=== PATIENT | female | born 1995 | race Caucasian/White ===

== ENCOUNTER 2016-08-05 15:44 | Inpatient (IN) | payer MEDICAID ==
[2016-08-05] VITALS (12 sets, daily range): BP systolic 108–150; BP diastolic 59–94; PULSE 63–104; TEMP 98.2–98.4
[~2016-08-05] VITALS: Ht 170.2 cm; Wt 72.7 kg
[~2016-08-05 15:44] MED LIST: AMOXICILLIN 8751 TAB PO; CEFTIN500 MG PO; NAPROSYN500 MG PO; NO HOME MEDICATIONS; NORCO 325 MG-51 TAB PO; PHENERGAN W/CO120 M1 PO; PREDNISONE20 MG PO
[2016-08-05] MEDS ORDERED: PRENATAL (16:11)
[2016-08-05 18:09] LABS: AMPHETAMINE URINE NEGATIVE; BARBITURATES URINE NEGATIVE; BENZODIAZEPINES URINE NEGATIVE; BUPRENORPHINE URINE NEGATIVE; METHADONE URINE NEGATIVE; OPIATES URINE NEGATIVE; OXYCODONE URINE NEGATIVE; PHENCYCLIDINE URINE NEGATIVE; PROPOXYPHENE URINE NEGATIVE; THC CANNABINOIDS URINE POSITIVE
[2016-08-05 18:42] LABS: BASO % 0.1 % (0.0-2.0); EOS % 0.2 % (0-4.0); GRAN % 75.6 % (42.2-75.2); HEMATOCRIT 42.4 % (37.0-47.0); HEMOGLOBIN 14.8 g/dl (12.5-16.0); LYMPH # 2.3 (1.2-3.4); LYMPH % 16.1 % (20.0-51.0); MEAN CELL VOLUME 87 fl (80.0-100.0); MEAN CORPUSCULAR HEMOGLOBIN 30 pg (27.0-31.0); MEAN CORPUSCULAR HGB CONC 35 g/dl (33.0-37.0); MEAN PLATELET VOLUME 11.4 fl (7.4-10.4); MONO # 1.1 (0.1-0.6); MONO % 7.4 % (1.7-9.3); PLATELET COUNT 245 K/mm3 (130-400); RED BLOOD COUNT 4.87 M/mm3 (4.10-5.30); REDCELL DISTRIBUTION WIDTH-CV 14.2 % (11.5-14.5); WHITE BLOOD COUNT 14.5 K/mm3 (4.8-10.8)
[2016-08-06 02:10] VITALS: BP 128/88; PULSE 88; TEMP 98.1
[2016-08-06 07:11] VITALS: BP 104/64; PULSE 67
[2016-08-06 17:41] VITALS: BP 117/85; PULSE 81
[2016-08-07] MEDS ORDERED: PERCOCET 325 MG1 TA2 PO (08:28)
[2016-08-07] MEDS ORDERED: IBU800 M1 PO (08:28)
[2016-08-07 08:59] VITALS: BP 109/67; PULSE 68; TEMP 98
== END 2016-08-07 16:30 | disposition home or self-care (01) | DRG 775 ==
LOC: LDRO 15:44 → LDR 16:24 → OB 18:04 → LDRO 18:04 → LDR 18:04 → OB 21:00
PROVIDERS: Obstetrics & Gynecology
PROC: 10E0XZZ Delivery of Products of Conception, External Approach (ICD-10-PCS; principal; 2016-08-05)
DX: O77.0 Labor and delivery complicated by meconium in amniotic fluid (principal); O99.323 Drug use complicating pregnancy, third trimester; F12.90 Cannabis use, unspecified, uncomplicated; O99.334 Smoking (tobacco) complicating childbirth; F17.210 Nicotine dependence, cigarettes, uncomplicated; Z3A.39 39 weeks gestation of pregnancy; Z37.0 Single live birth
CPT/HCPCS: J2540; J2590; J7120

== ENCOUNTER 2017-05-03 15:10 | Emergency (ER) | payer MEDICAID ==
[~2017-05-03] VITALS: Ht 170.2 cm; Wt 68.2 kg
[~2017-05-03 15:10] MED LIST changes: +IBU800 M1 PO; +PERCOCET 325 MG1 TA2 PO; +PRENATAL
[2017-05-03 15:37] VITALS: BP 106/73; TEMP 98.1
[2017-05-03 18:10] VITALS: PULSE 75
== END 2017-05-03 18:11 | disposition home or self-care (01) ==
LOC: COL.ER 15:10
DX: O26.899 Other specified pregnancy related conditions, unspecified trimester (principal); R19.7 Diarrhea, unspecified; O99.330 Smoking (tobacco) complicating pregnancy, unspecified trimester; F17.210 Nicotine dependence, cigarettes, uncomplicated; Z3A.00 Weeks of gestation of pregnancy not specified
CPT/HCPCS: J7030

== ENCOUNTER 2017-08-26 06:48 | Inpatient (IN) | payer MEDICAID ==
[~2017-08-26] VITALS: Ht 167.6 cm; Wt 81.8 kg
[2017-08-26] VITALS (47 sets, daily range): BP systolic 95–139; BP diastolic 55–92; PULSE 70–124; TEMP 97.3–98.3
[2017-08-26 08:05] LABS: BASO # 0.1 (0.0-0.2); BASO % 0.4 % (0.0-2.0); EOS # 0.1 (0.0-0.7); EOS % 0.7 % (0-4.0); GRAN % 69.9 % (42.2-75.2); HEMATOCRIT 38.2 % (37.0-47.0); HEMOGLOBIN 12.9 g/dl (12.5-16.0); LYMPH # 3.8 (1.2-3.4); LYMPH % 22.1 % (20.0-51.0); MEAN CELL VOLUME 88 fl (80.0-100.0); MEAN CORPUSCULAR HEMOGLOBIN 30 pg (27.0-31.0); MEAN CORPUSCULAR HGB CONC 34 g/dl (33.0-37.0); MEAN PLATELET VOLUME 9.9 fl (7.4-10.4); MONO # 1.1 (0.1-0.6); MONO % 6.4 % (1.7-9.3); PLATELET COUNT 286 K/mm3 (130-400); RED BLOOD COUNT 4.35 M/mm3 (4.10-5.30); REDCELL DISTRIBUTION WIDTH-CV 13.9 % (11.5-14.5)
[2017-08-26 08:18] LABS: TRICYCLIC ANTIDEPRESS URINE NEGATIVE
[2017-08-27 07:45] VITALS: BP 92/61; PULSE 79; TEMP 97.7
[2017-08-27] MEDS ORDERED: MOTRIN 800800 MG/TAB PO (08:36)
[2017-08-27] MEDS ORDERED: PERCOCET 325 MG1 TA2 PO (08:36)
[2017-08-27 16:30] VITALS: BP 112/66; PULSE 81; TEMP 98.4
[2017-08-27 21:05] VITALS: BP 110/60; PULSE 68; TEMP 97.8
[2017-08-28 07:00] VITALS: BP 93/47; PULSE 53
== END 2017-08-28 17:20 | disposition home or self-care (01) | DRG 775 ==
LOC: LDR 06:48 → OB 07:16 → LDR 07:16 → OB 16:06
PROVIDERS: Obstetrics & Gynecology
PROC: 10E0XZZ Delivery of Products of Conception, External Approach (ICD-10-PCS; principal; 2017-08-26)
PROC: 3E033VJ Introduction of Other Hormone into Peripheral Vein, Percutaneous Approach (ICD-10-PCS; 2017-08-26)
DX: O99.334 Smoking (tobacco) complicating childbirth (principal); F17.210 Nicotine dependence, cigarettes, uncomplicated; O99.324 Drug use complicating childbirth; F12.90 Cannabis use, unspecified, uncomplicated; Z3A.39 39 weeks gestation of pregnancy; Z37.0 Single live birth
CPT/HCPCS: J2405; J2590; J2795; J7120